=== PATIENT | male | born 1975 | race Caucasian/White ===

== ENCOUNTER 2020-07-28 18:30 | Emergency (ER) | payer MEDICAID, SELFPAY ==
--- NOTE | ~2020-07-28 | XR_ITS ---
EXAMINATION: XR RIB SERIES, RIGHT: 4 VIEWS XR SHOULDER, RIGHT: 3 VIEWS XR KNEE, RIGHT: 4 VIEWS XR ANKLE, RIGHT: 3 VIEWS CLINICAL INFORMATION: Trauma COMPARISON: Right shoulder radiographs dated 06/05/2019 XR/XR knee RT 3V FINDINGS/IMPRESSION: Rib series/chest: No displaced rib fractures. Normal symmetric lung volumes. No parenchymal consolidation. No pleural effusion. No pneumothorax. Cardiomediastinal silhouette and pulmonary vascularity are within normal limits. Right shoulder: No acute fracture or dislocation. Small marginal osteophytes along the glenohumeral and acromioclavicular joints. Soft tissues unremarkable. Right knee: No acute fracture or dislocation. Mild medial tibiofemoral compartment joint space narrowing. Small patellofemoral marginal osteophytes. No knee joint effusion. Right ankle: No acute fracture or dislocation. Ankle mortise is congruent. Talar dome intact. 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 Large plantar and posterior calcaneal enthesophytes. No tibiotalar joint effusion.
--- NOTE | ~2020-07-28 | XR_ITS ---
EXAMINATION: XR RIB SERIES, RIGHT: 4 VIEWS XR SHOULDER, RIGHT: 3 VIEWS XR KNEE, RIGHT: 4 VIEWS XR ANKLE, RIGHT: 3 VIEWS CLINICAL INFORMATION: Trauma COMPARISON: Right shoulder radiographs dated 06/05/2019 XR/XR ankle RT 2V FINDINGS/IMPRESSION: Rib series/chest: No displaced rib fractures. Normal symmetric lung volumes. No parenchymal consolidation. No pleural effusion. No pneumothorax. Cardiomediastinal silhouette and pulmonary vascularity are within normal limits. Right shoulder: No acute fracture or dislocation. Small marginal osteophytes along the glenohumeral and acromioclavicular joints. Soft tissues unremarkable. Right knee: No acute fracture or dislocation. Mild medial tibiofemoral compartment joint space narrowing. Small patellofemoral marginal osteophytes. No knee joint effusion. Right ankle: No acute fracture or dislocation. Ankle mortise is congruent. Talar dome intact. 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 Large plantar and posterior calcaneal enthesophytes. No tibiotalar joint effusion.
--- NOTE | ~2020-07-28 | XR_ITS ---
EXAMINATION: XR RIB SERIES, RIGHT: 4 VIEWS XR SHOULDER, RIGHT: 3 VIEWS XR KNEE, RIGHT: 4 VIEWS XR ANKLE, RIGHT: 3 VIEWS CLINICAL INFORMATION: Trauma COMPARISON: Right shoulder radiographs dated 06/05/2019 XR/XR ribs RT min 3V w CXR1V FINDINGS/IMPRESSION: Rib series/chest: No displaced rib fractures. Normal symmetric lung volumes. No parenchymal consolidation. No pleural effusion. No pneumothorax. Cardiomediastinal silhouette and pulmonary vascularity are within normal limits. Right shoulder: No acute fracture or dislocation. Small marginal osteophytes along the glenohumeral and acromioclavicular joints. Soft tissues unremarkable. Right knee: No acute fracture or dislocation. Mild medial tibiofemoral compartment joint space narrowing. Small patellofemoral marginal osteophytes. No knee joint effusion. Right ankle: No acute fracture or dislocation. Ankle mortise is congruent. Talar dome intact. 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 Large plantar and posterior calcaneal enthesophytes. No tibiotalar joint effusion.
--- NOTE | ~2020-07-28 | XR_ITS ---
EXAMINATION: XR RIB SERIES, RIGHT: 4 VIEWS XR SHOULDER, RIGHT: 3 VIEWS XR KNEE, RIGHT: 4 VIEWS XR ANKLE, RIGHT: 3 VIEWS CLINICAL INFORMATION: Trauma COMPARISON: Right shoulder radiographs dated 06/05/2019 XR/XR shoulder RT min 2V FINDINGS/IMPRESSION: Rib series/chest: No displaced rib fractures. Normal symmetric lung volumes. No parenchymal consolidation. No pleural effusion. No pneumothorax. Cardiomediastinal silhouette and pulmonary vascularity are within normal limits. Right shoulder: No acute fracture or dislocation. Small marginal osteophytes along the glenohumeral and acromioclavicular joints. Soft tissues unremarkable. Right knee: No acute fracture or dislocation. Mild medial tibiofemoral compartment joint space narrowing. Small patellofemoral marginal osteophytes. No knee joint effusion. Right ankle: No acute fracture or dislocation. Ankle mortise is congruent. Talar dome intact. 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 Large plantar and posterior calcaneal enthesophytes. No tibiotalar joint effusion.
[2020-07-28 18:39] VITALS: BP 142/81; PULSE 70; RESP 18; TEMP 36.6; O2SAT 96; BMI 39.0
--- NOTE | 2020-07-28 19:43 | ED.LOWEXIN ---
HPI - Extremity Injury (Lower) General Chief Complaint: Extremity Injury, Lower Stated Complaint: knee pain, fall (work related inj) Time Seen by Provider: 07/28/20 19:12 Source: patient Mode of arrival: ambulatory History of Present Illness HPI Narrative: 45-year-old male with a past medical history of gastric bypass presenting to the ED complaining of right shoulder, right side, back, right knee, and right ankle pain s/p mechanical slip and fall on ice [employer]. Reports fell on right side, denies head trauma or LOC. Denies taking anticoagulation. Denies symptoms prior to fall. Denies urinary incontinence/retention, SOB, tingling, weakness complaint: knee injury and ankle injury Onset (ago): hour(s) Related Data Previous Rx's Medication Instructions Recorded acetaminophen [Tylenol Extra 500 mg PO Q6H PRN #20 tab 07/28/20 Strength] cyclobenzaprine 5 mg PO Q8H PRN 5 Days #14 tab 07/28/20 lidocaine [Lidoderm] 1 patch TOPICAL DAILY PRN #30 ea 07/28/20 MDD remove after 12 hours Allergies Allergy/AdvReac Type Severity Reaction Status Date / Time No Known Allergies Allergy Verified 07/28/20 18:42 [No Known Allergies*] Review of Systems Review of Systems: Constitutional: No Fever, No Chills Cardiovascular: No Chest Pain, No SOB Respiratory: No Cough, No Sputum Gastrointestinal: No Nausea, No Vomiting, No Abdominal pain Genitourinary: No Dysuria, No Urinary Frequency, No Urinary Incontinence/Retention Musculoskeletal: + joint pain, No Myalgias, + Joint Swelling Skin: No Skin Lesions, No rash Neuro: No Weakness, No Numbness, No Paresthesias, no headache, no LOC Yes all other systems are reviewed and are negative [facility] Past Medical History Attestation statement: The following information was validated with the patient. Surgical History (Updated 07/28/20 @ 18:41 by Dat Duvall) Hx of gastric bypass Social History Social History Alcohol intake: never Smoked in Last 30 Days: No Use of substances other than those prescribed or required for medical reasons: No Advance Directives: No Advance Directives Information Provided: No Physical Exam Vital Signs: Vital Signs: Last Vital Signs Temp 97.8 F 07/28/20 18:39 Pulse 70 07/28/20 18:39 Resp 18 07/28/20 18:39 BP 142/81 H 07/28/20 18:39 Pulse Ox 96 07/28/20 18:39 Body Mass Index 39.0 Const: General: cooperative, healthy appearing, comfortable and no acute distress Orientation/consciousness: patient oriented x3 Limitations: no limitations HENMT: Head: Yes normal to inspection and Yes atraumatic Ears: hearing grossly normal bilaterally General nose exam: Normal external nose present Face and sinus: Yes normal facial exam Eyes: General: appearance normal, both eyes and all related structures EOM: EOMs intact bilaterally Neck: Other: No midline cervical spinous tenderness Neck: Yes normal visual inspection and Yes no lymphadenopathy Chest: Other: + right-sided chest wall/rib tenderness to palpation. No crepitus, no deformity Chest palpation & inspection: normal inspection of the chest and no crepitus Resp: Effort & Inspection: normal respiratory effort Cardio: Rate: regular rate GI: Inspection: Yes normal to inspection Palpation (GI): Soft to palpation, nontender, no guarding and not rigid : General: Yes no CVA tenderness Back/Spine/Pelvis: Other: No midline thoracic/lumbar spinous tenderness. + right sided upper thoracic MSK & scapular/trapezius muscle tenderness to palpation. No deformity/ecchymosis or erythema Back: no CVA tenderness Skin: Rashes: no rashes Wounds: no wounds Neuro: Other: No saddle anesthesia General: patient oriented x3, gait normal, tone normal and moves all extremities Gait exam (Neuro): Normal gait present Motor exam (neuro): 5/5 motor strength present throughout Extrem: Other: Right knee with mild swelling and tenderness to palpation. Decreased flexion secondary to pain. Right ankle swelling and tenderness noted. Decreased ROM secondary to pain. NV intact Pelvis stable. Hips nontender. Right tib/fib nontender. Right foot nontender Course Course Course Narrative: -imaging studies without acute fractures or dislocations. > patient placed in Roque wrap in the ED for comfort. Follow-up with PCP/Orthopedics as needed discussed MDM - Extremity Injury (Lower) MDM Narrative Medical decision making narrative: 45-year-old male with a past medical history of gastric bypass presenting to the ED complaining of right shoulder, right side, back, right knee, and right ankle pain s/p mechanical slip and fall on ice [employer]. On exam VSS, NAD, no midline spinous tenderness throughout or red flag symptoms. Physical exam as above. Rule out fracture vs MSK pain Plan: Imaging Discharge Plan Discharge Clinical Impression: Musculoskeletal strain Patient Disposition: Home, Self-Care Instructions: Musculoskeletal Pain (ED) Additional Instructions: Your x-rays did not show any acute fractures or dislocations Your pain is likely musculoskeletal Flexeril is a muscle relaxer, take at night as it makes you drowsy, do not drive, drink alcohol, or operate machinery while taking it Lidoderm patches are numbing patches, apply to painful area In addition take Tylenol at home If symptoms persist or worsen, pain becomes unbearable, you developed urinary retention or incontinence, or weakness return to the ED Prescriptions: New acetaminophen [Tylenol Extra Strength] 500 mg tablet 500 mg PO Q6H PRN (Reason: pain or fever) Qty: 20 RF: 0 lidocaine [Lidoderm] 5 % adhesive patch,medicated 1 patch topical DAILY MDD remove after 12 hours PRN (Reason: pain) Qty: 30 RF: 0 cyclobenzaprine 5 mg tablet 5 mg PO Q8H PRN (Reason: pain (scale score 7-10)) 5 Days Qty: 14 RF: 0 Referrals: Physician,Unknown [Primary Care Provider] - 2 days Stand Alone Forms: Work/School Release
== END 2020-07-28 21:16 | disposition home or self-care (01) ==
PROVIDERS: Emergency Provider Emergency Medicine
DX: S86.911A Strain of unspecified muscle(s) and tendon(s) at lower leg level, right leg, initial encounter (principal); S83.91XA Sprain of unspecified site of right knee, initial encounter; M25.571 Pain in right ankle and joints of right foot; M54.5 Low back pain; M25.511 Pain in right shoulder; W01.0XXA Fall on same level from slipping, tripping and stumbling without subsequent striking against object, initial encounter; Y93.9 Activity, unspecified; Y92.9 Unspecified place or not applicable; Y99.9 Unspecified external cause status; Z98.84 Bariatric surgery status; Z79.899 Other long term (current) drug therapy
CPT/HCPCS: 71101; 73030; 73562; 73600; 99283; 99284

== ENCOUNTER 2020-12-07 20:41 | Emergency (ER) | payer MEDICAID, OTHER, SELFPAY ==
--- NOTE | ~2020-12-07 | XR_ITS ---
EXAMINATION: XR SHOULDER, RIGHT CLINICAL INFORMATION: Pain after fall COMPARISON: None TECHNIQUE: Three views of the right shoulder. FINDINGS: The bones and soft tissues are normal. No fracture. Glenohumeral and acromioclavicular alignment is anatomic with normal joint space. No abnormal soft tissue calcifications. XR/XR shoulder RT min 2V IMPRESSION: Normal right shoulder.
[2020-12-07 20:53] VITALS: BP 129/82; PULSE 89; RESP 18; TEMP 36.5; O2SAT 95; BMI 39.0
--- NOTE | 2020-12-07 22:37 | ED_ITS ---
HPI - Extremity Problem General Chief complaint: Extremity Injury, Upper Stated complaint: Fall Time Seen by Provider: 12/07/20 22:37 Source: patient Mode of arrival: ambulatory History of Present Illness HPI Narrative: Is a 45-year-old male who presents after having stepped off of his 18 ray truck which caused him to grab the rail and he caught his entire body weight in his right shoulder. Thereafter, patient states that he has had pain, limited ability for range of motion but denies any numbness/tingling distally. Related Data Previous Rx's Medication Instructions Recorded acetaminophen [Tylenol Extra 500 mg PO Q6H PRN #20 tab 07/28/20 Strength] cyclobenzaprine 5 mg PO Q8H PRN 5 Days #14 tab 07/28/20 lidocaine [Lidoderm] 1 patch TOPICAL DAILY PRN #30 ea 07/28/20 MDD remove after 12 hours Allergies Allergy/AdvReac Type Severity Reaction Status Date / Time No Known Allergies Allergy Verified 07/28/20 18:42 [No Known Allergies*] Review of Systems Review of Systems: Pertinent positives and negatives as stated in HPI 10 point review of systems is otherwise negative. PMFSH Past Medical History Source: nursing notes reviewed Medical History No known health problems Surgical History Hx of gastric bypass Social History Social History Alcohol intake: never Advance Directives: No Advance Directives Information Provided: Yes Physical Exam Vital Signs: Vital Signs: Last Vital Signs Temp 97.7 F 12/07/20 20:53 Pulse 67 12/08/20 00:34 Resp 14 12/08/20 00:34 BP 120/81 12/08/20 00:34 Pulse Ox 98 12/08/20 00:34 Body Mass Index 39.0 VITAL SIGNS: Reviewed. GENERAL: Well developed, well nourished, in no acute distress. HEAD: Normocephalic/atraumatic EYES: PERRLA, EOMI OROPHARYNX: no oral lesions noted, posterior pharynx clear LUNGS: Normal breath sounds. CARDIOVASCULAR: Regular rate and rhythm without noted murmurs ABDOMEN: Soft, non-tender, non-distended with bowel sounds. LEFT SHOULDER: No deformity, but patient unable to abduct greater than 10%, difficulty with flexion as well. Otherwise, provocative testing equivocal due to underlying pain. NEUROLOGIC: Alert and oriented x 4. Strength and sensation to light touch were grossly intact x 4. Course Course Course Narrative: 45-year-old male with history and clinical presentation and on review of x-rays negative for acute fracture or dislocation and otherwise suspicious for rotator cuff injury. Patient was placed in a sling and provided with combination analgesics. He will be provided with a referral. He was informed of the plan and is agreeable. Discharge Plan Discharge Clinical Impression: Acute pain of right shoulder Patient Disposition: Home, Self-Care Instructions: How to Use a Sling (ED), Shoulder Pain (ED) Additional Instructions: Tylenol 1000 mg, orally, every 6 hours as needed for pain control. Do not exceed 4000 mg within 24 hours. Ibuprofen 400 mg, orally with milk or food, every 6 hours as needed for pain control. Apply ice to the shoulder for 10-15 minutes, 3 to 4 times a day for additional pain relief. You have been provided with a referral to see Orthopedics. Prescriptions: No Action acetaminophen [Tylenol Extra Strength] 500 mg tablet 500 mg PO Q6H PRN (Reason: pain or fever) Qty: 20 RF: 0 lidocaine [Lidoderm] 5 % adhesive patch,medicated 1 patch topical DAILY MDD remove after 12 hours PRN (Reason: pain) Qty: 30 RF: 0 cyclobenzaprine 5 mg tablet 5 mg PO Q8H PRN (Reason: pain (scale score 7-10)) 5 Days Qty: 14 RF: 0 Referrals: Kaelyn Mcmanus MD [Physician] - 2 days (Please evaluate and treat for suspected rotator cuff tear of right shoulder.) Print Language: [place]
[2020-12-07] MEDS: Acetaminophen 325 MG TABLET 975 MG PO (23:02)
[2020-12-07] MEDS: Ketorolac Tromethamine 15 MG/ML VIAL IM (23:03)
[2020-12-08 00:34] VITALS: BP 120/81; PULSE 67; RESP 14; O2SAT 98
== END 2020-12-08 01:12 | disposition home or self-care (01) ==
PROVIDERS: Emergency Provider Student in an Organized Health Care Education/Training Program
DX: M25.511 Pain in right shoulder (principal)
CPT/HCPCS: 73030; 96372; 99284; J1885

== ENCOUNTER → 2020-12-23 14:47 | Outpatient (BNVA) | payer OTHER, MEDICAID, SELFPAY | PROVIDERS: Visit Provider Physician Assistant | DX: S46.001A Unspecified injury of muscle(s) and tendon(s) of the rotator cuff of right shoulder, initial encounter (principal) | CPT/HCPCS: 99202 ==

== ENCOUNTER 2021-01-06 15:03 | Outpatient (REF) | payer OTHER, MEDICAID, SELFPAY | END 2021-01-06 15:04 | disposition home or self-care (01) | LOC: HO.MRI 15:03 | PROVIDERS: Visit Provider Physician Assistant | DX: Z13.89 Encounter for screening for other disorder (principal) ==

== ENCOUNTER 2021-01-12 12:30 | Emergency (ER) | payer MEDICAID, SELFPAY ==
[2021-01-12 13:08] VITALS: BP 121/85; PULSE 77; RESP 18; TEMP 36.6; O2SAT 96; BMI 39.0
[2021-01-12] MEDS: Lidocaine HCl 2 % MPF 5 ML VIAL INFILTRATI ×2 (13:55)
--- NOTE | 2021-01-12 14:33 | ED.SKABFB ---
HPI - Skin/Abscess/Foreign Bdy General Chief complaint: Skin/Abscess/Foreign Body Stated complaint: Abcess Time Seen by Provider: 01/12/21 13:49 Source: patient Mode of arrival: ambulatory Limitations: no limitations History of Present Illness HPI narrative: Patient presents to ED for painful lump on anus since yesterday while straining to use the bathroom. Patient denies any fever, chills, abdominal pain, nausea, vomiting, or any anal trauma. Related Data Previous Rx's Medication Instructions Recorded acetaminophen [Tylenol Extra 500 mg PO Q6H PRN #20 tab 07/28/20 Strength] cyclobenzaprine 5 mg PO Q8H PRN 5 Days #14 tab 07/28/20 lidocaine [Lidoderm] 1 patch TOPICAL DAILY PRN #30 ea 07/28/20 MDD remove after 12 hours hydrocortisone acetate [Anusol-HC] 25 mg PA BID #12 ea 01/12/21 Allergies Allergy/AdvReac Type Severity Reaction Status Date / Time No Known Allergies Allergy Verified 01/12/21 13:08 [No Known Allergies*] Review of Systems Review of Systems: Yes all other systems are reviewed and are negative Constitutional: Constitutional: Reports as per HPI and Reports no additional constitutional complaints Eyes: Eyes: Reports as per HPI and Reports no additional eye complaints ENT: Reports system reviewed and no additional complaints, except as documented and Reports as per HPI Cardiovascular: Cardiovascular: Reports as per HPI and Reports no additional cardiovascular complaints Respiratory: Respiratory: Reports as per HPI and Reports no additional respiratory complaints Gastrointestinal: Gastrointestinal: Reports as per HPI and Reports no additional gastrointestinal complaints Comments: Rectal pain Genitourinary: Genitourinary: Reports no additional male genitourinary complaints and Reports as per HPI Musculoskeletal: Musculoskeletal: Reports no additional musculoskeletal complaints and Reports as per HPI Neurologic: Reports system reviewed and no additional complaints, except as documented and Reports as per HPI Psychiatric: Psychiatric: Reports no additional psychiatric complaints and Reports as per HPI PMFSH Past Medical History Medical History No known health problems Surgical History Hx of gastric bypass Social History Social History Alcohol intake: never Advance Directives: No Advance Directives Information Provided: No Physical Exam Vital Signs: Vital Signs: Last Vital Signs Temp 97.9 F 01/12/21 13:08 Pulse 77 01/12/21 13:08 Resp 18 01/12/21 13:08 BP 121/85 01/12/21 13:08 Pulse Ox 96 01/12/21 13:08 Body Mass Index 39.0 Const: General: cooperative, healthy appearing, comfortable, no acute distress, well developed, alert, awake and Physically active Orientation/consciousness: patient oriented x3 HENMT: Head: Yes normal to inspection, Yes No palpable skull fracture present, Yes normocephalic, Yes atraumatic and No abrasion Eyes: General: appearance normal, both eyes and all related structures Neck: Neck: Yes normal visual inspection, Yes full ROM, Yes no lymphadenopathy, Yes no meningeal signs, Yes trachea midline, Yes supple and No tender Chest: Chest palpation & inspection: normal inspection of the chest and normal palpation of entire chest wall Resp: Effort & Inspection: normal respiratory effort and able to speak in complete sentences Auscultation: clear to auscultation bilaterally Cardio: Jugular venous distension: no JVD Heart sounds: S1 normal heart sound present and S2 normal heart sound present GI: Other: Rectal exam positive for thrombosed hemorrhoid Inspection: Yes normal to inspection and No abdominal wall ecchymosis Palpation (GI): Soft to palpation, not firm, nontender, no guarding and not rigid : General: No CVA tenderness and Yes no CVA tenderness Back/Spine/Pelvis: Back: no CVA tenderness, No CVA tenderness and No back tenderness Skin: General skin exam: no rashes or lesions noted and elasticity normal Neuro: General: patient oriented x3, gait normal, no meningeal signs and CN's II-XI intact bilaterally Cranial nerves: Yes CN's II-XII intact bilaterally Extrem: General: Yes normal to inspection and Yes full ROM Psych: Appearance: grossly normal, well kempt and not disheveled Course Course Course Narrative: Patient up-to-date with tetanus. Will lyse hemorrhoid. Reevaluation(s) Reevaluation #1: 5 mL of 1% lidocaine placed into hemorrhoid for anesthesia. Size 11 blade was used to make a elliptical cut in thrombosed hemorrhoid. Blood clots were squeezed out. Patient feels relief. Dressing placed. Refer for seizure hemorrhoid was clean with sterile saline and Betadine iodine. Time: 14:36 MDM - Skin/Abscess/Foreign Bdy MDM Narrative Medical decision making narrative: Thrombosed hemorrhoid Discharge Plan Discharge Clinical Impression: External hemorrhoid, thrombosed Patient Disposition: Home, Self-Care Instructions: Thrombosed Hemorrhoid (ED) Additional Instructions: Your thrombosed hemorrhoid was cut and blood clots were removed. Will need to follow up with surgery Clinic outpatient for evaluation for proper healing. Prescriptions: New hydrocortisone acetate [Anusol-HC] 25 mg suppository 25 mg PA BID Qty: 12 RF: 0 No Action acetaminophen [Tylenol Extra Strength] 500 mg tablet 500 mg PO Q6H PRN (Reason: pain or fever) Qty: 20 RF: 0 lidocaine [Lidoderm] 5 % adhesive patch,medicated 1 patch topical DAILY MDD remove after 12 hours PRN (Reason: pain) Qty: 30 RF: 0 cyclobenzaprine 5 mg tablet 5 mg PO Q8H PRN (Reason: pain (scale score 7-10)) 5 Days Qty: 14 RF: 0 Referrals: Ismael Bermudez MD [Physician] - 2 days (Thrombosed hemorrhoid was lysed in the ER and blood clots removed. Needs follow-up for proper healing. Patient discharged with Anusol suppository) Stand Alone Forms: Work/School Release Interventions: ED Discharge Assessment Last Done: 01/12/21 14:49 Discharge Date/Time: 01/12/21 14:50 Print Language: Wallisian
== END 2021-01-12 14:50 | disposition home or self-care (01) ==
PROVIDERS: Emergency Provider Emergency Medicine Emergency Medical Services; PCP Internal Medicine
DX: K64.5 Perianal venous thrombosis (principal)
CPT/HCPCS: 46083; 99283; 99284

== ENCOUNTER → 2021-01-28 15:45 | Outpatient (BNVA) | payer OTHER, MEDICAID, SELFPAY | PROVIDERS: Visit Provider Physician Assistant | DX: S46.001A Unspecified injury of muscle(s) and tendon(s) of the rotator cuff of right shoulder, initial encounter (principal); X58.XXXA Exposure to other specified factors, initial encounter; Y93.9 Activity, unspecified; Y92.9 Unspecified place or not applicable; Y99.9 Unspecified external cause status; Z98.84 Bariatric surgery status | CPT/HCPCS: 99212; J1040 ==

== ENCOUNTER → 2021-02-26 15:10 | Outpatient (BNVA) | payer OTHER, MEDICAID, SELFPAY | PROVIDERS: Visit Provider Nurse Practitioner Family | DX: R22.1 Localized swelling, mass and lump, neck (principal); M79.18 Myalgia, other site; M54.12 Radiculopathy, cervical region | CPT/HCPCS: 99202 ==

== ENCOUNTER 2021-03-04 15:00 | Outpatient (RCR) | payer OTHER, MEDICAID, SELFPAY ==
--- NOTE | 2021-02-02 17:28 | MHC.PT.EP ---
[facility] [place] Office [place] Office [place] Office [address] Giacomo Baird [address] [phone] F: [phone] F: [phone] F: [phone] F: [phone] Physical Therapy Plan of Care Date of Evaluation: Date of Surgery: N/A Diagnosis: R RTC injury Assessment: pt's signs and symptoms initially consistent w/ cervical radiculopathy. He is experiencing radiating pain and reduced sensation to the R UE. Upon palpation of involved structures there was a noticeable lump to the area between the cervical spine and the scapula. This area was firm yet moveable. This therapist is unable to see his MRI so it is unclear if this area was seen on MRI. It is unclear if this is a severe trigger point or the retracted muscle belly of the levator scapulae or upper trapezius muscle. pt would benefit from cervical MRI d/t radicular nature of symptoms, presence of neurological symptoms, and lump localized between cervical spine and R scapula. pt presents to physical therapy with pain, decreased range of motion, decreased strength, impaired functional mobility, and impaired postural awareness. pt is a good candidate for skilled PT due to age, potential remediation of impairments, typical disease/condition progression and prognosis, comorbidities, and motivation. pt would benefit from tailored strengthening and stretching exercise program, functional training, postural re-training, neuromuscular re-education, modalities as needed for pain, equipment safety demonstration. Frequency and Duration: The patient will be seen 2x/wk for 5 wks Short Term Goals: pt will be I w/ HEP to promote self-management of condition. pt will improve R shoulder flexion to 90* to promote ease in reaching for objects on higher shelves. pt will improve R shoulder flexion and abduction strength to 4-/5 to tolerate lifting 10# object. [employer]per Goals: pt will be I w/ upper body ADLs to promote functional independence for donning/doffing shirts. pt will report a statistically significant improvement in self-reported outcome measure, SPADI, to promote return to PLOF. pt will lift 25# object from ground to chest height w/ proper lifting mechanics and no verbal cueing. Treatment Plan: Modalities to reduce pain, spasms and effusion. Manual therapy to restore motion and function. Therapeutic exercise to improve strength and flexibility. Neuromuscular re-education for posture and balance. Therapeutic activities to return to functional activities of daily living. Electronically signed by: Tari Hernandez PT, DPT Please sign and return to therapist. Thank you for your referral.
--- NOTE | 2021-03-30 17:49 | MHC.PT.DC ---
[facility] [place] Office [place] Office [place] Office [address] Giacomo Baird [address] [phone] F: [phone] F: [phone] F: [phone] F: [phone] Physical Therapy Discharge Report Diagnosis: R RTC injury Date of Surgery: N/A Date of Evaluation: 02/02/21 Date of Discharge: 03/30/21 Treatments to Date: 8 Cancellations to Date: 2 No Shows to Date: 2 Discharge Status: Visit Non-compliance Discharge Summary: The patient has no showed two appointments. Per [facility] policy he is to be discharged due to visit non-compliance. He was being seen by pain management and orthopedics. He is awaiting an ultrasound and MRI evaluation of the large lump he has localized to the right levator scapulae region. Electronically signed by: Tari Hernandez PT, DPT Please sign and return to therapist. Thank you for your referral.
== END 2021-03-30 17:49 | disposition home or self-care (01) ==
LOC: HO.PT 15:00
PROVIDERS: PCP Internal Medicine; Visit Provider Physician Assistant
DX: S46.001A Unspecified injury of muscle(s) and tendon(s) of the rotator cuff of right shoulder, initial encounter (principal)
CPT/HCPCS: 97110; 97162; 97164; 97530

== ENCOUNTER → 2021-03-30 10:00 | Outpatient (BNVA) | payer MEDICAID, SELFPAY | PROVIDERS: PCP Internal Medicine; Visit Provider Urology | DX: Z30.2 Encounter for sterilization (principal); N47.1 Phimosis; N48.83 Acquired buried penis; F41.8 Other specified anxiety disorders; Z98.84 Bariatric surgery status | CPT/HCPCS: 99202 ==

== ENCOUNTER 2021-05-10 05:59 | Day surgery (SDC) | payer MEDICAID, SELFPAY ==
[2021-05-03 14:16] VITALS: BMI 37.9
--- NOTE | 2021-05-07 13:11 | HO.ANESPROP2 ---
Documented by User: Latricia Carr NP 05/07/21 13:16 HPI - Anesthesia Eval Consult details Narrative: 45yo M for Circumcision, buried penis procedure, Vasectomy PMFSH Active Problems Active Problems: All Active Problems (Updated 05/03/21 @ 14:14 by Marya Mendez RN) Injury of right rotator cuff (Acute) Epidemic cervical myalgia (Acute) Mass of subcutaneous tissue of back (Acute) Mass of right side of neck (Acute) Myofascial pain (Acute) Cervical radiculopathy (Acute) Anxiety about health (Acute) Acquired phimosis of penis (Acute) Acquired buried penis (Acute) Past Medical History Medical History No known health problems IRWIN (obstructive sleep apnea) Surgical History Surgical History Hx of gastric bypass Social History Social History Are you a primary career center director to a significant other at home: No Do you presently have visiting nurse or other home services: No Alcohol intake: never Patient Tobacco Use Status: Former Tobacco user Quit Date: 2011 Tobacco use type: Cigarette Use of substances other than those prescribed or required for medical reasons: No Have you been hit, kicked, punched, or otherwise hurt by someone within the past year? If so, by whom?: No Are you DNR?: No Advance Directives: No Advance Directives Information Provided: No Advance Directives on File: No Recently lost weight without trying: No How much weight loss: 34pounds or more Eating poorly because of decreased appetite: No Nutrition screen score: 4 Nutrition Risks: No Nutritional Risk Current occupational status: employed Current occupation: truck driiver. rt hand Meds Allergies Allergy/AdvReac Type Severity Reaction Status Date / Time No Known Allergies Allergy Verified 03/30/21 10:07 [No Known Allergies*] Exam Exam Date and Time: May 07, 2021 1311 Height,Weight and Vital Signs: Height 5 ft 11 in Weight 123.377 kg Assessment and Plan Assessment Anesthesia Assessment: Chart Reviewed Documented by User: Lulu Mcfarland MD 05/10/21 07:33 PMFSH Past Medical History Medical History No known health problems IRWIN (obstructive sleep apnea) Surgical History Surgical History Hx of gastric bypass History of Problems with Anesthesia: No Social History Social History Are you a primary career center director to a significant other at home: No Do you presently have visiting nurse or other home services: No Alcohol intake: never Patient Tobacco Use Status: Former Tobacco user Quit Date: 2011 Tobacco use type: Cigarette Use of substances other than those prescribed or required for medical reasons: No Have you been hit, kicked, punched, or otherwise hurt by someone within the past year? If so, by whom?: No Are you DNR?: No Advance Directives: No Advance Directives Information Provided: No Advance Directives on File: No Recently lost weight without trying: No How much weight loss: 34pounds or more Eating poorly because of decreased appetite: No Nutrition screen score: 4 Nutrition Risks: No Nutritional Risk Current occupational status: employed Current occupation: truck driiver. rt hand Meds Allergies Allergy/AdvReac Type Severity Reaction Status Date / Time No Known Allergies Allergy Verified 03/30/21 10:07 [No Known Allergies*] Exam Airway Mallampati Class: III TM Dist: >3cm Neck ROM: Full Loose/Missing/Broken Teeth: No Heart: RRR Lungs: CTA Assessment and Plan Assessment Anesthesia Assessment: Anesthesia Plan Discussed Final Anesthetic Review History of Problems with Anesthesia: No NPO: Yes ASA Class: II Final Preanesthetic Review: Meds/Allgs Chart Reviewed, Consent Obtained/Reviewed and Anes Risks/Benef Reviewed Patient Risk: Low Procedure Risk: Low Anesthetic Plan Anesthetic Plan: GA Disposition: Standard PACU
[2021-05-10] VITALS (9 sets, daily range): BP systolic 91–131; BP diastolic 61–80; PULSE 63–82; RESP 16; TEMP 36.1; O2SAT 95–99
[2021-05-10] MEDS: Lactated Ringers 1,000 ML 100 ML IVCONT (06:37)
[2021-05-10] MEDS: levoFLOXacin/D5W 500 MG/100 ML PIGGYBACK 100 MG IV (06:39)
--- NOTE | 2021-05-10 07:43 | MHC.SHP ---
Pre-Procedural Eval Section A Date of Service: 05/10/21 Section B Chief Complaint: phimosis,buried penis,vasectomy Details of Present Illness: has phimosis with redundant suprapubic fat pad lost also requesting vasectomy for 5 children Relevant Family History (Specify if Yes): No Relevant Social History: None Present Medications: see Short Stay Collaborative assessment Medical History: No relevant PMH History of Previous Operations: No relevant previous surgery Allergies: Allergies Allergy/AdvReac Type Severity Reaction Status Date / Time No Known Allergies Allergy Verified 03/30/21 10:07 [No Known Allergies*] Review of Systems Sugical H&P ROS: Negative: Constitution, Cardiovascular, Respiratory, Neurological, Psychiatric, Hem-Onc, Allergic/Immunologic, Gastrointestinal, Genitourinary, Musculoskeletal, Integumentary, Endocrine and Eyes/Ears/Nose/Throat Exam Surgical H&P Exam: Normal: HEENT, Normal: Heart, Normal: Lungs, Normal: Extremities, Normal: Abdomen, Normal: Skin and Normal: Neurological Plan Diagnosis/Plan: Unchanged ( circumcision with vasectomy and buried penis attachment) I have reviewed the history and physical and performed a pertinent physical examination on my patient. No changes have occurred unless specified.
--- NOTE | 2021-05-10 10:10 | W.PM.OPN ---
Operative Note Operative Note Date of Service: 05/10/21 Narrative: PreOperative Diagnosis: phimosis with hidden penis and anxiety about health Post Operative Diagnosis: phimosis with hidden penis anxiety about health Procedure: Circumcision, vasectomy and buried penis repair Surgeon: Dr Kenji Fleming Anesthesia: General Indications for procedure: Recurring balanitis in inability to withdrawal foreskin of penile glans. concerns about health. Fathered 5 children. Plan for vasectomy. Large suprapubic fat pad with hidden penis.Risks and benefits including bleeding, scarring, need for revision surgery been discussed. Procedure: After informed consent was verified the patient was brought to the operating room and placed in a supine position. Anesthesia was administered per protocol. The patient was prepped and draped sterile fashion. Safety pause time-out was performed. Antibiotics have been given. The Vasa was palpated on the left side of the scrotum. A small incision was made over the Vasa through the skin using a towel clip to elevate the Vasa. The knife was used to divide the covering of the Vasa and the vas was extracted using a ring clamp. a segment was isolated. A small clamp was applied. Vas was divided and proximal end cauterized. A 4-0 chromic was placed around the distal portion and the intervening segment was removed. Skin was closed with an interrupted 4-0 chromic suture. A similar procedure was repeated on the right side with identification of the vas through palpation in isolation against the skin using a towel clamp. A small incision was made over the vas and the vas was then isolated and divided in the previously described fashion. The penis was examined and proximal incision marked that lay just proximal to the resting position of the penile sulcus. This was followed around the circumference of the penis. A penile ring block was performed using 1% lidocaine with no epinephrine. Approximately 8 cc. The proximal incision was developed with sharp blade running circumferentially around the penis. The skin was to give a 1 cm separation between the foreskin in the remaining penile shaft skin. The foreskin was withdrawn and the penile glans exposed. A a distal incision was made approximately 5 mm proximal to the penile sulcus. At the area of the frenulum care was taken to empty the penile frenulum intact. Using clamps the dorsal skin was elevated. Using Metzenbaum scissors the avascular plane was entered and proximal and distal incision were joined. The bridging skin was elevated and clamped. It was then divided using Bovie. The sleeve of tissue was then removed circumferentially around the penis using cautery in order to minimize bleeding. The shaft was then examined in any bleeding areas were controlled. More local anesthetic was injected into the plane beneath avascular plane to help with postprocedure pain management. The skin edges after they were appropriately examined low reapposed. A 3-0 chromic suture was placed at 12:00 o'clock and 06:00 o'clock positions. Interrupted 3-0 was then placed the 09:00 o'clock and 3 o'clock position. Each quadrant was then filled with 3 sutures using 4-0 chromic. For the buried penis 2 small incisions were made on the suprapubic area over the some versus pubis. We then attempted to use a suture to placed through the periosteum of the symphysis pubis and to tack the overlying fat pad down in order to display the penis fully. Due to his large amount of fat over his symphysis pubis this was unable to be accomplished. A decision was made not to proceed with this part of the procedure. We had attempted to use multiple different needles in order to perform the suture. These incisions were closed using a Monocryl and Tegaderm is applied. At the completion of the procedure there was adequate hemostasis. The incision was washed and dried. Antibiotic cream was applied to the incision. A Juan wrap was applied followed by a Coban dressing. Xeroform gauze had been used to cover antibiotic ointment. He tolerated the procedure well and was extubated in the room and transferred in stable condition to the recovery area. Pathology: Foreskin Drains: none
[2021-05-10] MEDS: ondansetron HCL 4 MG/2 ML VIAL IVPUSH (10:28)
== END 2021-05-10 11:26 | disposition home or self-care (01) ==
PROVIDERS: PCP Internal Medicine; Visit Provider Urology
PROC: (CPT 54161; principal; 2021-05-10 07:30)
PROC: (CPT 55250; 2021-05-10 07:30)
DX: N47.1 Phimosis (principal); N48.30 Priapism, unspecified; N48.83 Acquired buried penis; N48.1 Balanitis; F41.8 Other specified anxiety disorders; G47.33 Obstructive sleep apnea (adult) (pediatric); Z98.84 Bariatric surgery status; Z87.891 Personal history of nicotine dependence; Z79.899 Other long term (current) drug therapy
CPT/HCPCS: 54161; 55250; 88302; 88304; J0131; J0690; J1100; J1170; J1956; J2250; J2370; J2405; J2550; J3010

== ENCOUNTER → 2021-06-10 09:16 | Outpatient (BNVA) | payer MEDICAID, SELFPAY | PROVIDERS: PCP Internal Medicine; Visit Provider Urology | DX: N48.1 Balanitis (principal); N48.83 Acquired buried penis | CPT/HCPCS: 99212 ==

== ENCOUNTER → 2021-10-14 13:49 | Outpatient (BNVA) | payer SELFPAY | PROVIDERS: PCP Internal Medicine; Visit Provider Physician Assistant | DX: Z02.79 Encounter for issue of other medical certificate (principal) ==

== ENCOUNTER 2022-01-22 00:15 | Emergency (ER) | payer MEDICAID, SELFPAY ==
--- NOTE | ~2022-01-22 | CT_ITS ---
EXAMINATION: CT PELVIS WITHOUT CONTRAST CLINICAL INFORMATION: Status post buried penis surgery COMPARISON: None TECHNIQUE: Helical scanning was performed with submillimeter collimation through the pelvis. Sagittal and coronal multiplanar 2-D reconstructions were obtained. This CT examination was performed using dose optimization techniques as appropriate, variously including the following: *Automated exposure control *Adjustment of mA and/or kV according to patient size (this includes techniques or standardized protocols for targeted exams where dose is matched to indication/reason for exam; i.e. extremities or head) *Use of iterative reconstruction technique DLP: 868 mGy-cm FINDINGS: There is skin thickening in the suprapubic region with nondescript subcutaneous fluid collections within the suprapubic fat. On the left, fluid extends inferiorly along the spermatic cord. There is also marked scrotal edema. No soft tissue gas. Imaged pelvic viscera are unremarkable. No acute osseous abnormalities. CT/CT pelvis wo con IMPRESSION: * Extensive inflammatory changes with skin thickening and ill-defined fluid collections in the suprapubic region stenting along the spermatic cord on the left. These could be compatible with seromas, phlegmon or developing abscesses, depending upon the clinical context. These collections do not appear mature/drainable at this time. * Marked scrotal skin thickening. * No soft tissue gas.
[2022-01-22 00:30] VITALS: BP 145/90; PULSE 102; RESP 16; TEMP 37.2; O2SAT 95; BMI 39.4
--- NOTE | 2022-01-22 01:22 | ED.GENADULT ---
HPI - General Adult General Chief complaint: General Medical Stated complaint: possible post surgery infection Time Seen by Provider: 01/22/22 00:35 Source: patient Mode of arrival: ambulatory Limitations: no limitations History of Present Illness HPI narrative: Patient comes to the emergency room complaining of drainage status post surgery. Patient states that he has history of buried penis, 3 weeks ago, which was done in [place] at the [facility]. Patient states that he has had no issues since the surgery, but today he started draining serosanguineous fluid from the surgical site. Patient denies fever chills, complaining of testicular swelling which is ongoing since the surgery. Patient has no testicular pain. Patient denies hematuria or dysuria Related Data Previous Rx's Medication Instructions Recorded acetaminophen 500 mg tablet 500 mg PO Q6H PRN pain or fever 07/28/20 (Tylenol Extra Strength) #20 tabs tizanidine 2 mg tablet 2 mg PO BEDTIME #30 tabs 02/26/21 sulfamethoxazole 400 1 tab PO DAILY #10 tabs 05/10/21 mg-trimethoprim 80 mg tablet (Bactrim) tramadol 50 mg tablet 50 mg PO Q6H PRN pain (scale score 05/10/21 4-6) #14 tabs cephalexin 500 mg capsule 500 mg PO BID #20 caps 01/22/22 doxycycline hyclate 100 mg tablet 100 mg PO BID #20 tabs 01/22/22 Allergies Allergy/AdvReac Type Severity Reaction Status Date / Time No Known Allergies Allergy Verified 06/10/21 09:33 [No Known Allergies*] Review of Systems Review of Systems: Constitutional : No Weight loss, No Fever, No Chills, No Night Sweats, No Fatigue, No Malaise ENT/Mouth : No Hearing loss, No Ear Pain, No Nasal Congestion, No Sinus Pain, No Hoarseness, No sore throat, No Rhinorrhea, No Swallowing Difficulty Eyes: No Eye Pain, No Swelling, No Redness, No Foreign Body, No Discharge, No Vision Changes Cardiovascular : No Chest Pain, No SOB, No Dyspnea on Exertion, No Orthopnea, No Edema, No Palpitations Respiratory : No Cough, No Sputum, No Wheezing, No Smoke Exposure, No Dyspnea Gastrointestinal : No Nausea, No Vomiting, No Diarrhea, No Constipation, No abdominal Pain, No Hematochezia, No Melena Genitourinary : Complaining of serosanguineous fluid drainage from the surgical site in the right inguinal area , status post burried penis surgery, No Dysuria, No Urinary Frequency, No Hematuria, No Urinary Incontinence, No Urgency, No Flank Pain, No Urinary Flow Changes, No Hesitancy Musculoskeletal : No joint pain, No Myalgias, No Joint Swelling Skin : No Skin Lesions, No rash Neuro : No Weakness, No Numbness, No Paresthesias, No Loss of Consciousness, No Dizziness, No Headache Psych : No Anxiety/Panic, No Depression, No SI/HI/AH/VH, No Social Issues, Heme/Lymph: No Bruising, No Bleeding,No Lymphadenopathy Endocrine : No Polyuria, No Polydipsia, No Temperature Intolerance [facility] Past Medical History Medical History Dependence on other enabling machines and devices Essential hypertension Gastroesophageal reflux disease without esophagitis Morbid obesity No known health problems Obstructive sleep apnea syndrome IRWIN (obstructive sleep apnea) Other chronic pain Tendonitis Vitamin D deficiency Surgical History Hx of gastric bypass Social History Social History Are you a primary youth care worker to a significant other at home: No Do you presently have visiting nurse or other home services: No Alcohol intake: never Patient Tobacco Use Status: Former Tobacco user Quit Date: 2011 Tobacco use type: Cigarette Advance Directives: No Current occupational status: employed Current occupation: truck driiver. rt hand Physical Exam ED Vital Signs: Vital Signs - 24 hr 01/22/22 00:30 01/22/22 02:00 01/22/22 04:00 Temperature 99 F 97.7 F Pulse Rate 102 H 94 90 Respiratory Rate 16 Blood Pressure 145/90 H 153/78 H 146/81 H Pulse Oximetry 95 95 98 Oxygen Delivery Method Room Air Room Air Room Air BMI result Body Mass Index 39.4 Const Other: Appearance: Alert. Oriented X3. No acute distress. Eyes: Pupils equal, round and reactive to light. ENT: Pharynx normal. Neck: Normal inspection. Neck supple. No lymph nodes noted. No crepitus CVS: Normal heart rate and rhythm. Pulses normal. Normal S1 and S2 Respiratory: No respiratory distress. Breath sounds normal. No Wheezing. No rales Abdomen: Soft and nontender. No rigidity. No distention. : Circumcised penis, no penile discharge, edematous scrotum, no testicular pain bilaterally. Serosanguineous discharge from the right inguinal area at the surgical site, significant induration in the suprapubic area bilaterally Skin: Skin warm and dry. Normal skin color. Normal skin turgor. Extremities: No lower extremity edema. No Lacerations. No Rash Neuro: Oriented X 3. No motor deficit. No sensory deficit. Moving all extremities. No slurred speech. CN 2 through 12 grossly intact Psych: calm, cooperative, normal affect Course Course Course Narrative: Patient does not have significant pain. No crepitation, Epi's gangrene not suspected. Labs and imaging pending I discussed the patient and the labs with Dr. Fleming. White blood cell count and lactic within normal limits. Patient likely has a large seroma. Patient started on Keflex and doxycycline. Patient is to follow-up with his urologist in [facility] on Monday Medical Decision Making Lab Data Result diagrams: 01/22/22 01:55 01/22/22 01:55 Labs: Lab Results 01/22/22 01/22/22 01/22/22 Range/Units 01:55 01:55 01:55 WBC 9.6 (4.8-10.8) X10*3/uL RBC 4.32 L (4.60-5.80) X10*6/uL Hgb 12.3 L (14.0-18.0) g/dl Hct 37.3 L (42.0-52.0) % MCV 86.3 (80.0-98.0) fL MCH 28.5 (27.0-33.0) pg MCHC 33.0 (31.0-36.0) g/dl RDW 11.3 (11.0-16.0) % Plt Count 340 (160-400) X10*3/uL MPV 10.0 (9.4-12.4) fL Absolute Nucleated RBC 0.000 (0.0-0.012) X10*3/uL Nucleated RBC % (auto) 0.0 (0.0-0.2) /100WBC Sodium 137 (135-145) mmol/L Potassium 4.5 (3.3-5.1) mmol/L Chloride 100 (96-108) mmol/L Carbon Dioxide 27 (22-29) mmol/L Anion Gap 15 (12-20) BUN 16 (9-16) mg/dL Creatinine 0.75 (0.5-1.4) mg/dL Estim Creat Clear Calc 164.4 Estimated GFR > 60 Random Glucose 99 (60-115) mg/dL Lactic Acid 0.9 (0.5-2.0) mmol/L Calcium 8.9 (8.4-10.2) mg/dL Total Bilirubin 0.6 (0.0-1.0) mg/dL AST 14 (5-37) U/L ALT 13 (0-40) U/L Alkaline Phosphatase 98 (39-117) U/L Total Protein 7.3 (6.5-8.0) g/dL Albumin 4.1 (3.5-5.0) g/dL Imaging Data CT pelvis: Radiologist's impression: FINDINGS: There is skin thickening in the suprapubic region with nondescript subcutaneous fluid collections within the suprapubic fat. On the left, fluid extends inferiorly along the spermatic cord. There is also marked scrotal edema. No soft tissue gas. Imaged pelvic viscera are unremarkable. No acute osseous abnormalities. CT/CT pelvis wo con IMPRESSION: *? Extensive inflammatory changes with skin thickening and ill-defined fluid collections in the suprapubic region stenting along the spermatic cord on the left. These could be compatible with seromas, phlegmon or developing abscesses, depending upon the clinical context. These collections do not appear mature/drainable at this time. *? Marked scrotal skin thickening. *? No soft tissue gas.? Discharge Plan Discharge Clinical Impression: Seroma of genitourinary system after genitourinary system procedure Patient Disposition: Home, Self-Care Instructions: Seroma (DC) Additional Instructions: Call your urologist on Monday. Please follow-up with your primary care physician tomorrow. If you have any worsening or new symptoms, please return to the emergency room or call 911 Prescriptions: New cephalexin 500 mg capsule 500 mg PO BID Qty: 20 0RF doxycycline hyclate 100 mg tablet 100 mg PO BID Qty: 20 0RF No Action acetaminophen [Tylenol Extra Strength] 500 mg tablet 500 mg PO Q6H PRN (Reason: pain or fever) Qty: 20 0RF sulfamethoxazole-trimethoprim [Bactrim] 400-80 mg tablet 1 tab PO DAILY Qty: 10 0RF tramadol 50 mg tablet 50 mg PO Q6H PRN (Reason: pain (scale score 4-6)) Qty: 14 0RF tizanidine 2 mg tablet 2 mg PO BEDTIME Qty: 30 0RF Rx Instructions: start with 1/2 tablet as medication can be sedating.
[2022-01-22 02:00] VITALS: BP 153/78; PULSE 94; TEMP 36.5; O2SAT 95
[2022-01-22 02:02] LABS: Hematocrit 37.3 % (42.0-52.0); Hemoglobin 12.3 g/dl (14.0-18.0); Mean Corpuscular Hemoglobin 28.5 pg (27.0-33.0); Mean Corpuscular Volume 86.3 fL (80.0-98.0); Platelet Count 340 X10*3/uL (160-400); Red Blood Count 4.32 X10*6/uL (4.60-5.80); Red Cell Distribution Width 11.3 % (11.0-16.0); White Blood Count 9.6 X10*3/uL (4.8-10.8)
[2022-01-22 02:14] LABS: Lactic Acid 0.9 mmol/L (0.5-2.0)
[2022-01-22 02:21] LABS: Alanine Aminotransferase 13 U/L (0-40); Albumin Level 4.1 g/dL (3.5-5.0); Alkaline Phosphatase 98 U/L (39-117); Anion Gap 15 (12-20); Aspartate Amino Transferase 14 U/L (5-37); Bilirubin Total 0.6 mg/dL (0.0-1.0); Blood Urea Nitrogen 16 mg/dL (9-16); Calcium 8.9 mg/dL (8.4-10.2); Carbon Dioxide 27 mmol/L (22-29); Chloride 100 mmol/L (96-108); Creatinine Clr Calc Pharmacy 164.4; Estimated Glomerular Filt Rate > 60; Glucose Random 99 mg/dL (60-115); Potassium 4.5 mmol/L (3.3-5.1); Sodium 137 mmol/L (135-145); Total Protein 7.3 g/dL (6.5-8.0)
[2022-01-22 04:00] VITALS: BP 146/81; PULSE 90; O2SAT 98
[2022-01-22] MEDS: cephALEXin 500 MG CAPSULE PO (05:46)
== END 2022-01-22 05:53 | disposition home or self-care (01) ==
PROVIDERS: Emergency Provider Emergency Medicine
DX: N99.843 Postprocedural seroma of a genitourinary system organ or structure following other procedure (principal); N50.89 Other specified disorders of the male genital organs
CPT/HCPCS: 36415; 72192; 80053; 83605; 85027; 87040; 99283; 99284

== ENCOUNTER → 2022-03-14 14:50 | Outpatient (BNVA) | payer OTHER, MEDICAID, SELFPAY | PROVIDERS: Visit Provider Physician Assistant | DX: M54.12 Radiculopathy, cervical region (principal) | CPT/HCPCS: 99212 ==

== ENCOUNTER → 2022-09-02 11:16 | Outpatient (BNVA) | payer MEDICAID, SELFPAY | PROVIDERS: Visit Provider Physician Assistant Surgical | DX: E66.01 Morbid (severe) obesity due to excess calories (principal); Z68.42 Body mass index [BMI] 45.0-49.9, adult; Z98.84 Bariatric surgery status | CPT/HCPCS: 99212 ==

== ENCOUNTER → 2022-09-07 10:07 | Outpatient (BNVA) | payer MEDICAID, SELFPAY | PROVIDERS: PCP Internal Medicine; Visit Provider Anesthesiology | DX: D17.0 Benign lipomatous neoplasm of skin and subcutaneous tissue of head, face and neck (principal) | CPT/HCPCS: 99212 ==

== ENCOUNTER → 2022-09-21 10:57 | Outpatient (BNVA) | payer MEDICAID, SELFPAY | PROVIDERS: PCP Internal Medicine; Referring Provider Anesthesiology; Visit Provider Surgery | DX: D17.0 Benign lipomatous neoplasm of skin and subcutaneous tissue of head, face and neck (principal) | CPT/HCPCS: 99202 ==

== ENCOUNTER 2022-09-27 10:46 | Day surgery (SDC) | payer MEDICAID, SELFPAY ==
[2022-09-27 10:52] VITALS: BMI 44.6
[2022-09-27 11:05] VITALS: BP 130/76; PULSE 83; RESP 16; TEMP 36.3; O2SAT 97
--- NOTE | 2022-09-27 11:09 | MHC.SHP ---
Pre-Procedural Eval Section A Date of Service: 09/27/22 The patient is an INPATIENT: No Changes since office visit: No Cold of Flu in the past 2 weeks, No New Medical Problems, No Changes in Medication and No Patient answered all questions The History & Physical has been completed within 30 days and I have reviewed it.: Yes Section B Chief Complaint: Benign lipomatous neoplasm of skin and subcutaneou Allergies: Allergies Allergy/AdvReac Type Severity Reaction Status Date / Time No Known Allergies Allergy Verified 09/21/22 11:15 [No Known Allergies*] Plan I have reviewed the history and physical and performed a pertinent physical examination on my patient. No changes have occurred unless specified. Time Spent With Patient Time: Total time managing care of this patient today ____ minutes.
[2022-09-27] MEDS: Lactated Ringers 1,000 ML 50 ML IVCONT (11:38)
--- NOTE | 2022-09-27 12:24 | HO.ANESPROP2 ---
HPI - Anesthesia Eval Consult details Narrative: Posterir neck lipoma PMFSH Active Problems Active Problems: All Active Problems (Updated 01/23/22 @ 00:02 by Stacia Denise) Lipoma of skin and subcutaneous tissue of neck (Acute) Hx of gastric bypass (Acute) Balanitis (Acute) Injury of right rotator cuff (Acute) Epidemic cervical myalgia (Acute) Mass of subcutaneous tissue of back (Acute) Mass of right side of neck (Acute) Myofascial pain (Acute) Cervical radiculopathy (Acute) Anxiety about health (Acute) Acquired phimosis of penis (Acute) Acquired buried penis (Acute) Past Medical History Medical History Dependence on other enabling machines and devices Essential hypertension Gastroesophageal reflux disease without esophagitis Morbid obesity No known health problems Obstructive sleep apnea syndrome IRWIN (obstructive sleep apnea) Other chronic pain Tendonitis Vitamin D deficiency Family History Family history of problems with anesthesia: No Surgical History Surgical History Hx of gastric bypass History of Problems with Anesthesia: No Social History Social History Are you a primary home health care coordinator to a significant other at home: No Do you presently have visiting nurse or other home services: No Alcohol intake: never Patient Tobacco Use Status: Never used Tobacco Tobacco use type: Cigarette Use of substances other than those prescribed or required for medical reasons: No Are you DNR?: No Advance Directives: Yes Advance Directives Information Provided: Yes Advance Directives on File: No Advance Directives Date on File: 09/27/22 Recently lost weight without trying: No Nutrition Risks: No Nutritional Risk Current occupational status: employed Current occupation: truck driiver. rt hand Meds Allergies Allergy/AdvReac Type Severity Reaction Status Date / Time No Known Allergies Allergy Verified 09/21/22 11:15 [No Known Allergies*] Active Medications: Current Medications Lactated Ringer's (Lr) 1,000 mls @ 50 mls/hr IVCONT .Q20H FRANC Last Admin: 09/27/22 11:38 Dose: 50 mls/hr Home Medications Medication Instructions Recorded Confirmed Last Taken Type No Known Home Meds 09/27/22 09/27/22 Unknown History Exam Exam Date and Time: September 27, 2022 1224 Height,Weight and Vital Signs: Height 5 ft 11 in Weight 145.15 kg Last Vital Signs Temp 97.3 F 09/27/22 11:05 Pulse 83 09/27/22 11:05 Resp 16 09/27/22 11:05 BP 130/76 09/27/22 11:05 Pulse Ox 97 09/27/22 11:05 O2 Del Method Room Air 09/27/22 11:05 Airway Mallampati Class: I TM Dist: >3cm Neck ROM: Limited Heart: rrr Lungs: cta Assessment and Plan Assessment Anesthesia Assessment: Anesthesia Plan Discussed and Chart Reviewed Final Anesthetic Review Family History of Problems with Anesthesia: No History of Problems with Anesthesia: No NPO: Yes ASA Class: III Final Preanesthetic Review: No Changes in Pt Med Stat, Meds/Allgs Chart Reviewed, Consent Obtained/Reviewed and Anes Risks/Benef Reviewed Patient Risk: Intermediate Procedure Risk: Low Anesthetic Plan Anesthetic Plan: MAC: Disposition: Standard PACU
--- NOTE | 2022-09-27 13:19 | W.PM.OPN ---
Operative Note Operative Note Date of Service: 09/27/22 Narrative: Preoperative diagnosis: [] deep right posterior neck lipoma Postop diagnosis: [] same Procedure [] excision deep right posterior neck lipoma Surgeon: [] Artem Ic Designer Standard Cells: [] abimael Calhoun Type of Anesthesia: [] MAC Indication for surgery: [] symptomatic enlarging right posterior neck lipoma Findings: [] deeply situated lipoma measuring approximately 5 x 5 cm. Patient brought to the operating room, placed on the operating table in supine position, after adequate level of MAC anesthesia was induced And the wound infiltrated with 0.5% Marcaine and 1 lidocaine with epinephrine after the, patient was placed in left lateral decubitus position and the right posterior neck prepped and draped in usual sterile fashion. Using a transverse incision over the mass in question, this carried down through skin, subcutaneous tissue which was quite appreciable secondary to the patient's morbid obesity down to the lipoma in question. Dissection was somewhat challenging secondary to the patient's enormous size. The lipoma was circumferentially dissected out with a combination of blunt and Bovie dissection. Specimen was uneventfully delivered and sent to pathology for specimentation. Measurements are as mentioned in findings. Wound was irrigated, secured hemostasis, and closed using interrupted inverted deep dermal 3-0 Vicryl sutures followed by running subcuticular 4-0 Vicryl suture. sponge, needle, and instrument counts were reported to be correct. Patient tolerated the procedure well and emerged anesthesia stable condition. EBL minimal
[2022-09-27 13:30] VITALS: BP 118/68; PULSE 80; RESP 12; TEMP 36.7; O2SAT 96
[2022-09-27 13:49] VITALS: BP 128/70; PULSE 80; RESP 18; TEMP 36.4; O2SAT 96
== END 2022-09-27 14:11 | disposition home or self-care (01) ==
PROVIDERS: PCP Internal Medicine; Visit Provider Surgery
PROC: (CPT 21552; principal; 2022-09-27 12:20)
DX: D17.0 Benign lipomatous neoplasm of skin and subcutaneous tissue of head, face and neck (principal); E66.01 Morbid (severe) obesity due to excess calories; Z68.41 Body mass index [BMI] 40.0-44.9, adult; Z98.84 Bariatric surgery status; I10 Essential (primary) hypertension; M77.9 Enthesopathy, unspecified; G89.29 Other chronic pain; K21.9 Gastro-esophageal reflux disease without esophagitis; G47.33 Obstructive sleep apnea (adult) (pediatric); Z99.89 Dependence on other enabling machines and devices; Z87.891 Personal history of nicotine dependence
CPT/HCPCS: 21552; 88304; J0690; J1100; J1885; J2250; J2405

== ENCOUNTER → 2022-10-04 10:18 | Outpatient (BNVA) | payer MEDICAID, SELFPAY | PROVIDERS: PCP Internal Medicine; Visit Provider Surgery ==

== ENCOUNTER → 2022-10-14 10:27 | Outpatient (BNVA) | payer MEDICAID, SELFPAY | PROVIDERS: PCP Internal Medicine; Visit Provider Physician Assistant Surgical | DX: E66.01 Morbid (severe) obesity due to excess calories (principal); Z98.84 Bariatric surgery status; Z68.41 Body mass index [BMI] 40.0-44.9, adult | CPT/HCPCS: 99212 ==

== ENCOUNTER 2023-04-03 10:27 | Outpatient (AMB) | payer MEDICAID, SELFPAY ==
--- NOTE | 2023-04-03 10:38 | MHC.OFFVIS ---
Intake Vital Signs 04/03/23 10:41 Height 5 ft 11 in Weight 330 lb BMI 46.0 BP 166/82 H Blood Pressure Location Lt brachial Position Sitting Pulse 80 Intake Visit Reasons: Colonoscopy Screening Intake Note: Patient new consult for 1st pre colonoscopy screening. Patient denies any GI issues. Lingo Cleaner Required: No Accompanied by: Self / Same As Patient Allergies No Known Allergies [No Known Allergies*] Allergy (Verified 04/03/23 10:38) Medication List - Last Reconciled 04/03/23 by Monique Moreno PA-C No Known Home Meds HPI HPI Comments History of Present Illness Details A 47-year-old male referred for index screening colonoscopy He has no GI or general complaints No known family history of GI cancers No respiratory or cardiac issues Appetite is good Normal bowel pattern No nausea, vomiting, hematemesis, hematochezia fever chills He takes no medications PFSH Medical History (Updated 04/03/23 @ 10:51 by Monique Moreno PA-C) Tendonitis Gastroesophageal reflux disease without esophagitis Vitamin D deficiency Dependence on other enabling machines and devices Obstructive sleep apnea syndrome Other chronic pain Essential hypertension Morbid obesity IRWIN (obstructive sleep apnea) No known health problems Surgical History Lipoma of skin and subcutaneous tissue of neck (09/27/22) Hx of gastric bypass Social History Are you a primary care transition manager to a significant other at home: No Do you presently have visiting nurse or other home services: No Alcohol intake: never Patient Tobacco Use Status: Never used Tobacco Tobacco use type: Cigarette Advance Directives Date on File: 09/27/22 Current occupational status: employed Current occupation: truck driiver. rt hand Review of Systems Const All systems reviewed & are unremarkable except as noted in HPI and below Card Denies chest pain and Denies dyspnea Resp Denies dyspnea GI Denies abdominal pain, Denies hematochezia, Denies dyspepsia, Denies heartburn, Denies diarrhea, Denies nausea and Denies vomiting Psych Denies anxiety and Denies depression Physical Exam Vital Signs: Last Vital Signs Pulse 80 04/03/23 10:41 BP 166/82 H 04/03/23 10:41 BMI result Body Mass Index 46.0 Const General: cooperative, healthy appearing and comfortable Nutritional Appearance: obese Orientation/consciousness: patient oriented x3 Limitations: no limitations Eyes Sclerae: sclerae normal Resp Effort & Inspection: normal respiratory effort and able to speak in complete sentences Auscultation: clear to auscultation bilaterally Cardio Rate: regular rate Rhythm: regular rhythm Heart sounds: S1 normal heart sound present and S2 normal heart sound present GI Palpation (GI): Soft to palpation and nontender Auscultation: normal bowel sounds Skin General skin exam: no rashes or lesions noted Neuro General: patient oriented x3 Extrem General: Yes full ROM Psych Appearance: grossly normal and well kempt Mental Status: mental status grossly normal Speech and movement: Normal speech and movement present and Clear speech present Affect: normal affect Attitude: cooperative Thought process: Normal thought process present Thought content: Normal thought content present Assessment & Plan Assessment & Plan (1) Encounter for screening colonoscopy: Code(s): Z12.11 - Encounter for screening for malignant neoplasm of colon Plan: Index screening colonoscopy Plan Index screening colonoscopy Bariatric bed MiraLax Gatorade split prep Orders: Orders Colonoscopy - GI Use Only Today Z12.11 - Encounter for screening for malignant neoplasm of colon Medications: New bisacodyl (Dulcolax (bisacodyl)) Day before procedure, prep day Take 4 tablets by mouth upon awakening followed by large glass of water 20 mg (4 x 5 mg) PO ONCE 1 day 4 tabs 0RF colonoscopy prep Z12.11 - Encounter for screening for malignant neoplasm of colon polyethylene glycol 3350 (Miralax) Take as directed by mouth the day before your procedure. 238 grams PO ONCE 1 day PRN 238 grams 0RF laxative effect Patient Instructions: Very pleasant 47-year-old Gent referred for index screening colonoscopy. Will schedule Bariatric bed MiraLax Gatorade split prep Encouraged to call questions or concerns Coding Level of Care Code New Pt Level 3 (11543) Diagnoses Encounter for screening colonoscopy Z12.11 Time Spent (min) 22
[2023-04-03 10:41] VITALS: BP 166/82; PULSE 80; BMI 46.0
== END 2023-04-03 12:02 | disposition home or self-care (01) ==
PROVIDERS: PCP Internal Medicine; Visit Provider Physician Assistant
DX: Z12.11 Encounter for screening for malignant neoplasm of colon (principal); Z01.818 Encounter for other preprocedural examination
CPT/HCPCS: 99203

== ENCOUNTER → 2023-04-03 10:27 | Outpatient (BNVA) | payer MEDICAID, SELFPAY | PROVIDERS: PCP Internal Medicine; Visit Provider Physician Assistant | DX: Z12.11 Encounter for screening for malignant neoplasm of colon (principal) | CPT/HCPCS: 99212 ==